=== PATIENT | male | born 1980 | race Caucasian/White ===

== ENCOUNTER 2019-02-02 09:00 | Outpatient (RCR) | payer OTHER, SELFPAY ==
--- NOTE | 2019-02-02 10:02 | BH.SGPN.GN ---
Behaviors/Verbalizations/Mental Status: []Client alert and oriented, casually dressed and groomed. Eye contact good. Motor activity appropriate. Speech within normal limits. Affect constricted, mood anxious. Thoughts linear, logical, no signs of hallucinations or delusions. Client Response/Progress/Benefit: []Pt receptive of session, engaged throughout. He did well to work with the group to reflect on the quote and discussed the ways in which perspective can impact mental health and ability to make personal progress in life. Pt worked with group to identify how negative perspective can impact mental health which included: unrealistic expectations, self-sabotage, maintain depression and anxiety, overgeneralizing, increased distorted thoughts, and decreased self-confidence. Pt did well to engage in the challenge activity. Pt stated a positive perspective can help us overcome challenges in life. Pt appeared to benefit from increasing understanding of mental health benefits of a positive perspective and potential consequences to progress when perspective is negative. Recommended continued IOP tx to increase healthy coping skills, increase self-awareness, and prevent decompensation. Narrative Note: []
--- NOTE | 2019-02-02 11:00 | BH.SGPN.GN ---
Behaviors/Verbalizations/Mental Status: []Client alert and oriented, neatly dressed and groomed. Eye contact good. Motor activity appropriate. Speech within normal limits. Affect constricted, mood anxious, depressed. Thoughts linear, logical, no signs of hallucinations or delusions. Client Response/Progress/Benefit: []Client responded well to session, attentive and engaged in small group discussion. Group discussed the mental health benefits of recognizing strengths which included; improved self-esteem, better coping skills, more willingness to change, and increased resilience. Group identified the barriers that have prevented them from acknowledging their strengths and successes. These barriers included; negative thoughts, minimization, invalidation, and one?s environment. Group identified strategies to overcome barriers that prevent them from seeing strengths. These strategies included; keeping track of progress, practicing self-reflection, practicing self-compassion, and challenging distortions. Client wrote on his worksheet that he wants to work on stepping out of his comfort zone to improve his strengths. Client able to identify personal strengths he possesses which included; open-mindedness, humor, gratitude, independence, and creativity. Appeared to benefit from recognizing personal strengths and identifying strategies to overcome barriers. Client?s first day of IOP tx. Will continue tx to prevent decompensation and increase healthy coping skills. Narrative Note: []
--- NOTE | 2019-02-02 11:15 | BH.NA_ITS ---
Physical Data - Vital Signs Temperature: 97.9 F Pulse Rate: 68 Respiratory Rate: 16 Blood Pressure: 120/80 - Height/Weight Height: 1.88 m Weight:: 113.398 kg Weight in Pounds: 250.0 lbs Current Medication Compliance - Medication Compliance Do you take your medication as prescribed?: Yes Nutritional History - Appetite Nutritional Instructions:: If client shows signs of a swallowing problem, weight change of 10 pounds or more in the last month, or is on a diabetic diet, the physician will review and request a dietitian consult, as appropriate. All unintentional weight loss will be referred to the physician for decision on need for dietitian consult. Describe your appetite:: Good Have you noticed a change in your eating habits lately?: No Additional nutritional information:: client states he can stress eat at times but has not noticed a difference in his appetite since changing of his psychiatric medications Functional Assessment - Sleep Pattern Describe any problems with sleeping: Client states he sleeps usually around 5-6 hours a night. Client states he always wakes up still feeling tired and begins to get anxiety about what the day will bring every morning when he wakes up. 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 - Activities Motor Activity:: Functional Sensory/Communication Assess - Communication Problems Do you have difficulty understanding what people are saying?: No What is your primary language?: Sloven[place] Medical Problems/History - Cardiac Conditions Cardiovascular: Other (See comments) Comments:: client states he takes Metoprolol for a history of irregular heartbeat having PVC's - Pain Assessment Do you have acute or chronic pain?: No - Family History Comments:: Client states he has a sister with anxiety and depression and has a grandmother that had suicide attempts. Mental Status Summary - Mental Status Significant Findings/Observations on Appearance and Mood:: Client is alert and oriented x 4. Client is appropriately groomed. Client is cooperative with assessment and makes appropriate eye contact. Clients speech is clear, coherent and spontanous with normal rate and volume. Client appears moderately depressed and anxious during conversation, mild anhedonia, no anger noted. Client seems to make logical associations and has normal process in conversation. Client denies delusions or hallucinations. Client states he does have some passive thoughts of suicide but no plan. Clients judgement appears intact with good attention and concentration during assessment. Gait steady. Suicide Assessment - Suicidal Ideation Are you currently or have you been suicidal in the past?: Yes - client states not currently having suicidal ideations Physician Notification: If Active suicidal thoughts/Will not contract for safety is checked, contact physician and document in the Physician Notification section below. Assault History/Potential - History of Assault Do you have a history of assaulting someone?: No Physician Notification: If yes, notify physician and document notification date and time below. Past Psychiatric History - MH Treatment Hx Past Psychiatric Medications:: Lexapro (client states this gave him nightmares and increased his anxiety), Abilify (client states this caused extreme fear, sweating tremors), Paxil. Client states he did gene screening due to having reactions to medications in the past prior to starting Pristiq and states he has not had problems with this medication. Age of first mental health symptoms: Client states he first started having problems with anxiety and depression around age 29. Describe (age, circumstance, etc) any past hospitalizations: 01/28/19 - client went to [facility] ER per his 's request for symptoms of depre ssion. Client was admitted to psychiatric floor from 01/28/19 until 02/01/19. Client states his Buspar was increased while there and Seroquel was added to his medications so he states he has only been taking Seroquel for a couple of days. Client states the first couple of days of his hospitalization, he felt good there because he felt safe from his stressors and away from work (which is his main source of stress) but his last few days of hospitalization he felt no benefit. Client states today, after hospitalization, he does feel a little better mentally than he did prior to hospitalization. Current providers for mental health treatment (counselor, psychiatrist, case reviewer, etc.): Client is seen at [facility] in [place]. Client states he is not currently getting therapy services anywhere. Fall Risk Assessment - Age Age: Less than 60 - Mental Status Mental Status: Willing & able to ask for assistance when needed - Physical Status Physical Status: No problems - Impairments Impairments: None - Elimination Elimination: Continent AND independent - Gait or Balance Gait or Balance: Walks independently - Hx of Falls History of falls in the past 6 months: No known history - Medications/Substances Psychotropics:: Antidepressants, Antipsychotics, Anxiolytics (e.g. benzodiazepines) Medications/substances used within the past 24 hours or ordered to administer: 3 or more of the medications/substances listed above - Total Score Total Points:: 2 RN Summary of Impressions - Impressions Recommendations: Include psychiatric and medical issues, treatment planning recommendations, and discharge planning needs. - Level of Care How do the client's current symptoms and functional deficits support need for this level of care?: Client states these intense symptoms have been working up to severe for months. Client states his stressor is always work. Client states over the last couple of months he has been having increased anxiety. Client states he sleeps about 5-6 hours per night but always wakes up feeling tired and immediately upon waking begins having intense anxiety about what the day holds at work. Client states he has been taking naps on his office floor during the day. Client states he notices a big decrease in his energy level and motivation, paranoia about letting people/his clients at work down, a shorter attention span, increased worry about everything, avoidant behavior, hopelessness, fear of what the days will hold (for work). Client states his parents are somewhat supportive and his tries to be supportive but she's just sick of this after 10 years. Client states his sister has had a lot of issues with anxiety and depression to the point that she lost her job. Client went to the emergency room at [facility] on Thursday01/28/19 per his 's direction for mental health symptoms and SI and was hospitalized until 02/01/19. IOP will promote gains and prevent further decompensation while providing social support and skills training.
[2019-02-02 12:46] VITALS: BP 120/80; PULSE 68; RESP 16; TEMP 36.6
--- NOTE | 2019-02-07 09:00 | BH.COMM ---
Communication Note - Communication with Client Communication Note: Called in to cancel IOP due to work. Scheduled to be in in 02/09/19 for IOP and to meet with psychiatrist.
--- NOTE | 2019-02-09 15:02 | BH.COMM ---
Communication Note - Communication with Client Communication Note: No call/no show for IOP today. Staff left VM to call back. Scheduled to meet with psychiatrist today.
--- NOTE | 2019-02-10 10:03 | BH.DS ---
Discharge Summary - Demographics Date of Admission:: 02/02/19 Discharge Date: 02/10/19 Presenting Problems at Admission:: Pt is a 39 year old male with hx of MDD and YA. Recent admission to [facility] psychiatric unit from 01/28/19- 02/01/19. Was orginally referred to [facility] by his outpatient counselling psychologist on 01/24/19. Completed intial intake on 01/24/19 here at [facility] and was non-committal on starting IOP stating concern about missing work. On 02/02/19 pt showed up unexpectedly at [facility] requesting to start. He was vague on events that led to his recent inpt psyc admission stating it was at his 's request noting he verbalized suicidal thoughts however I didn't need to go inpaitient. Primary stressor is work. Notes fleeting sucidal thoughts which he describes as mostly passive wouldn't mind if I with occasional thoughts of methods. Denies any active suicidal ideations, plan, or intent. No hx of attempts. Increased sleep, low energy, low motivation, hopelessness, helplessness, anhedonia, isolation, and avoidant behaviors. Primary coping skills are unhealthy and include sleeping and avoidance. Constant anxiety and fear that he cannot perform his job. 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 Overwhelmed. Denies substance abuse. Denies HI or psychosis. Limited support. Due to worseing symptoms, recent hospitalization, and MH symptoms interfering with daily functioning pt was recommended to start IOP level of care. Discharge Diagnoses:: Major Depressive Disorder, recurrent, severe, w/o psychiotic features F33.1 Reason for Discharge:: Poor attendance. Did not show for scheduled IOP day and has not returned repeated phone calls. - Treatment Progress During Treatment & Response: No progress noted. Pt attended one day of IOP and did not return. Unclear on reasons. No treatment plan, psychosocial, or psychiatric evaluation completed as he only attended one day. Issues Still to be Addressed:: Depression, anxiety, limited healthy coping strategies, fleeting suicidal ideations, anhedonia, isolative/avoidanct behaviors, panic attacks, and mental health symptoms impacting his daily functioning. Discharge Recommendations/Instructions:: Pt did not return phone calls regarding his status in IOP or to discuss aftercare options. Strongly recommended that he continue with IOP due to the severity of his symptoms which led to recent hospitalization. Pt is currently linked with counselling psychologist Azucena Schreiber at [facility] [employer] [facility]. Discharge Handout: Complete Discharge Handout with client on aftercare options and continuity of care.
== END 2019-02-10 14:00 | disposition home or self-care (01) ==
LOC: BHIOP 09:00
PROVIDERS: Family Provider Family Medicine; PCP Family Medicine; Referring Provider Psychiatry & Neurology Psychiatry; Visit Provider Psychiatry & Neurology Psychiatry
DX: F33.1 Major depressive disorder, recurrent, moderate (principal); Z79.899 Other long term (current) drug therapy
CPT/HCPCS: H0035; 90853